=== PATIENT | male | born 1950 | race Caucasian/White ===

== ENCOUNTER 2020-08-26 08:36 | Emergency (ER) | payer BC ==
[2020-08-26 08:55] VITALS: BP 113/83; PULSE 103; TEMP 98.3; BMI 27.2
== END 2020-08-26 13:14 | disposition home or self-care (01) ==
LOC: JER 08:36
DX: M79.651 Pain in right thigh (principal); M79.652 Pain in left thigh; N50.811 Right testicular pain; N50.812 Left testicular pain
CPT/HCPCS: 76870-TC; 93970-TC; 99284-25

== ENCOUNTER 2020-12-07 12:12 | Observation (INO) | payer BC ==
[2020-12-07] MEDS ORDERED: ASPIRIN 81 MG CHEWABLE TABLETS PO ONE (13:17)
[2020-12-07] MEDS ORDERED: ASPIRIN 81 MG CHEWABLE TABLETS ONE (13:37)
[2020-12-07 13:42] LABS: BASO % 0.5 % (0-2.0); EOS % 0.6 % (0-4.5); HEMATOCRIT 40.2 % (35.4-49); HEMOGLOBIN 13.9 GM/dL (11.7-16.9); LYMPH % 23.4 % (8-40); MCH 31.5 pg (25.7-33.7); MCHC 34.5 g/dl (32.0-35.9); MEAN CELL VOLUME 91.4 fl (80-96); MEAN PLT VOLUME 8.3 fl (7.5-11.1); NEUT % 68.5 % (42.8-82.8); PLATELET COUNT 346 10^3/uL (134-434); RDW 13.5 % (11.9-15.9); WHITE BLOOD COUNT 9.4 K/mm3 (4.0-10.0)
[2020-12-07 14:00] LABS: CHLORIDE 113 mmol/L (98-107); SODIUM 141 mmol/L (136-145)
[2020-12-07 14:02] LABS: CALCIUM 9.3 mg/dL (8.5-10.1)
[2020-12-07 14:03] LABS: ALBUMIN 3.9 g/dl (3.4-5.0); ANION GAP 10 MMOL/L (8-16); CO2 19 mmol/L (21-32); GLUCOSE,RANDOM 102 mg/dL (74-106)
[2020-12-07 14:06] LABS: CREATININE 1.4 mg/dL (0.55-1.3); SGOT/AST 23 U/L (15-37); SGPT/ALT 32 U/L (13-61)
[2020-12-07 14:07] LABS: BILIRUBIN,TOTAL 0.5 mg/dL (0.2-1); TOT PROT 7.5 g/dl (6.4-8.2)
[2020-12-07 14:08] LABS: ALK PHOS 107 U/L (45-117)
[2020-12-07 14:35] LABS: BLOOD UREA NITROGEN 25.2 mg/dL (7-18)
[2020-12-07] MEDS ORDERED: ATORVASTATIN CA 80 MG TABLET (FP) PO SCH (22:00)
[2020-12-07] MEDS: HEPARIN NA (PORCINE) 5,000 UNITS/ML 1ML VIAL SQ SCH (22:58)
[2020-12-07] MEDS: ATORVASTATIN CA 40 MG TABLET (FP) PO SCH (23:54)
[2020-12-08 01:06] VITALS: BMI 27.3
[2020-12-08] MEDS: LOSARTAN POTASSIUM 50 MG TABLET PO SCH ×2 (08:08→11:58)
[2020-12-08 08:19] LABS: BASO % 0.5 % (0-2.0); EOS % 2.1 % (0-4.5); HEMOGLOBIN 13.4 GM/dL (11.7-16.9); LYMPH % 36.1 % (8-40); MCH 31.5 pg (25.7-33.7); MCHC 34.4 g/dl (32.0-35.9); MEAN CELL VOLUME 91.4 fl (80-96); MEAN PLT VOLUME 8.2 fl (7.5-11.1); NEUT % 52.3 % (42.8-82.8); PLATELET COUNT 317 10^3/uL (134-434); RBC 4.27 M/mm3 (4.00-5.60); RDW 13.9 % (11.9-15.9); WHITE BLOOD COUNT 7.2 K/mm3 (4.0-10.0)
[2020-12-08 08:31] LABS: CHLORIDE 110 mmol/L (98-107); SODIUM 142 mmol/L (136-145)
[2020-12-08 08:37] LABS: ALBUMIN 3.8 g/dl (3.4-5.0); ANION GAP 7 MMOL/L (8-16); CO2 25 mmol/L (21-32); GLUCOSE,RANDOM 75 mg/dL (74-106)
[2020-12-08 08:40] LABS: CHOLESTEROL 146 mg/dL (50-200); CREATININE 1.3 mg/dL (0.55-1.3); SGOT/AST 23 U/L (15-37); SGPT/ALT 31 U/L (13-61)
[2020-12-08 08:41] LABS: BILIRUBIN,TOTAL 0.8 mg/dL (0.2-1); LDL CHOLESTEROL (ONLY SJRH) 90 mg/dL (5-100)
[2020-12-08 08:42] LABS: ALK PHOS 108 U/L (45-117); TOT PROT 7.2 g/dl (6.4-8.2); TRIGLYCERIDES 90 mg/dL (0-150)
[2020-12-08 08:43] LABS: HDL CHOLESTEROL 45 mg/dL (40-60)
[2020-12-08] MEDS ORDERED: REGADENOSON 0.4 MG/5 ML PRE-FILLED SYRINGE IVPUSH ONE (10:37)
[2020-12-08] MEDS: ASPIRIN COATED 81 MG TABLET.EC PO SCH (12:46)
[2020-12-08] MEDS: PANTOPRAZOLE 40 MG TABLET PO SCH (12:50)
[2020-12-08] MEDS: HEPARIN NA (PORCINE) 5,000 UNITS/ML 1ML VIAL SQ SCH ×2 (12:50→21:02)
[2020-12-08] MEDS: amLODIPine BESYLATE 5 MG TABLET (FP) PO SCH ×2 (13:27→14:55)
[2020-12-08 17:15] LABS: URINE APPEARANCE CLEAR; URINE BILIRUBIN NEGATIVE (NEGATIVE); URINE COLOR YELLOW; URINE GLUCOSE (UA) NEGATIVE (NEGATIVE); URINE KETONE NEGATIVE (NEGATIVE); URINE LEUK ESTERASE NEGATIVE (NEGATIVE); URINE NITRITE NEGATIVE (NEGATIVE); URINE PROTEIN NEGATIVE (NEGATIVE); URINE UROBILINOGEN 0.2 mg/dL (0.2-1.0)
[2020-12-08] MEDS: ATORVASTATIN CA 40 MG TABLET (FP) PO SCH (21:00)
[2020-12-09 07:50] LABS: CALCIUM 8.9 mg/dL (8.5-10.1)
[2020-12-09 07:51] LABS: ALBUMIN 3.8 g/dl (3.4-5.0); BLOOD UREA NITROGEN 21.3 mg/dL (7-18)
[2020-12-09 07:54] LABS: CREATININE 1.4 mg/dL (0.55-1.3)
[2020-12-09 07:55] LABS: BILIRUBIN,TOTAL 0.7 mg/dL (0.2-1); TOT PROT 7.2 g/dl (6.4-8.2)
[2020-12-09] MEDS: amLODIPine BESYLATE 5 MG TABLET (FP) PO SCH (09:37)
[2020-12-09] MEDS: PANTOPRAZOLE 40 MG TABLET PO SCH (09:38)
[2020-12-09] MEDS: ASPIRIN COATED 81 MG TABLET.EC PO SCH (09:38)
[2020-12-09] MEDS: HEPARIN NA (PORCINE) 5,000 UNITS/ML 1ML VIAL SQ SCH (09:38)
[2020-12-09] MEDS: LOSARTAN POTASSIUM 50 MG TABLET PO SCH (09:38)
[2020-12-09 09:54] VITALS: BP 121/70; PULSE 56; TEMP 98
== END 2020-12-09 10:20 | disposition home or self-care (01) ==
LOC: JER 12:12 → JERBED 14:40 → UNDOADMOB 14:40 → INTOOBSV 17:50 → OBSVTOIN 17:50 → JERBED 22:05 → J4W 22:05 → JERBED 12-08 12:57 → J4W 12-08 12:57
PROVIDERS: ADMIT Family Medicine; ATTEND Family Medicine
DX: I25.10 Atherosclerotic heart disease of native coronary artery without angina pectoris (principal); E78.5 Hyperlipidemia, unspecified; I11.9 Hypertensive heart disease without heart failure; Z95.5 Presence of coronary angioplasty implant and graft; N17.9 Acute kidney failure, unspecified
CPT/HCPCS: 36415; 71046-TC-FY; 76775-TC; 78452-TC; 80053; 80061; 81003; 82550; 82553; 83036; 84443; 84484; 85025; 93005; 93010; 93017; 93306-TC; 99285-25; A9502; C9803; G0378; J2785; U0003; U0005

== ENCOUNTER 2021-01-10 12:46 | Inpatient (IN) | payer BC ==
[2021-01-10] MEDS ORDERED: SODIUM CHLORIDE 0.9% 500 ML INFUS.BAG IV ONE (13:55)
[2021-01-10] MEDS ORDERED: ONDANSETRON 4 MG/2 ML VIAL IVPUSH ONE ×2 (13:55→15:28)
[2021-01-10] MEDS ORDERED: morphine CARPU-JECT 4 MG/1 ML DISP.SYRIN IVPUSH ONE ×2 (13:56→15:28)
[2021-01-10] MEDS ORDERED: ONDANSETRON 4 MG/2 ML VIAL ONE ×3 (14:19→22:19)
[2021-01-10] MEDS ORDERED: morphine SULFATE 4 MG/ML VIAL ONE ×3 (14:19→22:19)
[2021-01-10 14:38] LABS: BASO % 0.2 % (0-2.0); EOS % 0.1 % (0-4.5); HEMATOCRIT 40.4 % (35.4-49); HEMOGLOBIN 14.2 GM/dL (11.7-16.9); LYMPH % 11.2 % (8-40); MCH 31.7 pg (25.7-33.7); MCHC 35.1 g/dl (32.0-35.9); MEAN CELL VOLUME 90.3 fl (80-96); MONO % 5.5 % (3.8-10.2); PLATELET COUNT 341 10^3/uL (134-434); RBC 4.47 M/mm3 (4.00-5.60); RDW 14.1 % (11.9-15.9); WHITE BLOOD COUNT 13.4 K/mm3 (4.0-10.0)
[2021-01-10 14:46] LABS: EPI CELLS 3 /uL (0-25.1); HYALINE CASTS 1 /uL (0-3.1); URINE APPEARANCE CLEAR; URINE BACTERIA 1 /uL (0-1359); URINE BILIRUBIN NEGATIVE (NEGATIVE); URINE COLOR DK YELLOW; URINE GLUCOSE (UA) NEGATIVE (NEGATIVE); URINE KETONE TRACE (NEGATIVE); URINE LEUK ESTERASE NEGATIVE (NEGATIVE); URINE NITRITE NEGATIVE (NEGATIVE); URINE PROTEIN TRACE (NEGATIVE); URINE RBC 12 /uL (0-23.9); URINE UROBILINOGEN 0.2 mg/dL (0.2-1.0); URINE WBC 3 /uL (0-25.8)
[2021-01-10 14:59] LABS: CALCIUM 9.1 mg/dL (8.5-10.1)
[2021-01-10 15:00] LABS: ALBUMIN 4.1 g/dl (3.4-5.0); BLOOD UREA NITROGEN 13.2 mg/dL (7-18)
[2021-01-10 15:04] LABS: BILIRUBIN,TOTAL 0.6 mg/dL (0.2-1); CREATININE 1.9 mg/dL (0.55-1.3); TOT PROT 7.6 g/dl (6.4-8.2)
[2021-01-10 15:12] LABS: YEAST NON SEEN (NEGATIVE)
[2021-01-10] MEDS ORDERED: ACETAMINOPHEN INJECTION 100 ML IVPB ONE (16:16)
[2021-01-10] MEDS ORDERED: HYDROmorphone HCL CARPU-JECT 2 MG/1 ML DISP.SYRIN IVPUSH ONE ×2 (16:20→20:23)
[2021-01-10] MEDS ORDERED: ACETAMINOPHEN 1000 MG/100 ML VIAL IVPB ONE (16:20)
[2021-01-10] MEDS ORDERED: HYDROmorphone HCl 2 MG/ML VIAL ONE ×2 (16:31→20:46)
[2021-01-10] MEDS ORDERED: CEFTRIAXONE 1 GM/50 ML BAG ONE (21:17)
[2021-01-10] MEDS ORDERED: ONDANSETRON 4 MG/2 ML VIAL IVPUSH PRN (21:18)
[2021-01-10] MEDS: morphine SULFATE 4 MG/ML VIAL IVPUSH PRN (22:31)
[2021-01-10] MEDS: SODIUM CHLORIDE 1,000 ML IV SCH (22:31)
[2021-01-11] MEDS: morphine SULFATE 4 MG/ML VIAL IVPUSH PRN ×4 (02:20→18:33)
[2021-01-11 02:53] VITALS: BMI 28.0
[2021-01-11] MEDS: ACETAMINOPHEN 1000 MG/100 ML VIAL IVPB PRN ×3 (04:44→20:52)
[2021-01-11 09:21] LABS: BASO % 0.5 % (0-2.0); EOS % 0.4 % (0-4.5); HEMATOCRIT 36.1 % (35.4-49); HEMOGLOBIN 12.8 GM/dL (11.7-16.9); LYMPH % 23.2 % (8-40); MCH 31.6 pg (25.7-33.7); MCHC 35.4 g/dl (32.0-35.9); MEAN CELL VOLUME 89.5 fl (80-96); MEAN PLT VOLUME 7.9 fl (7.5-11.1); MONO % 8.4 % (3.8-10.2); NEUT % 67.5 % (42.8-82.8); PLATELET COUNT 289 10^3/uL (134-434); RBC 4.03 M/mm3 (4.00-5.60); RDW 14.1 % (11.9-15.9); WHITE BLOOD COUNT 10.9 K/mm3 (4.0-10.0)
[2021-01-11] MEDS ORDERED: cefTRIAXone SODIUM 1 GM VIAL ONE (09:32)
[2021-01-11] MEDS ORDERED: DEXTROSE 5%-WATER - 50 ML IVPB ONE (09:32)
[2021-01-11] MEDS: SODIUM CHLORIDE 1,000 ML IV SCH (09:33)
[2021-01-11 09:40] LABS: CALCIUM 8.6 mg/dL (8.5-10.1)
[2021-01-11 09:41] LABS: BLOOD UREA NITROGEN 14.3 mg/dL (7-18)
[2021-01-11 09:44] LABS: ALBUMIN 3.1 g/dl (3.4-5.0); CREATININE 1.8 mg/dL (0.55-1.3)
[2021-01-11 09:45] LABS: BILIRUBIN,TOTAL 0.4 mg/dL (0.2-1); TOT PROT 6.1 g/dl (6.4-8.2)
[2021-01-11] MEDS: HEPARIN NA (PORCINE) 5,000 UNITS/ML 1ML VIAL SQ SCH ×2 (09:50→22:05)
[2021-01-11] MEDS ORDERED: CEFTRIAXONE 1 GM in DEXTROSE 5%-WATER - 50 ML IVPB SCH (10:00)
[2021-01-11] MEDS ORDERED: ASPIRIN COATED 81 MG TABLET.EC PO SCH (10:00)
[2021-01-11] MEDS ORDERED: ATORVASTATIN CA 40 MG TABLET (FP) PO SCH (10:00)
[2021-01-11] MEDS ORDERED: amLODIPine BESYLATE 5 MG TABLET (FP) PO SCH (10:00)
[2021-01-11] MEDS ORDERED: KETOROLAC TROMETHAMINE 60 MG/2 ML VIAL IM ONE (14:32)
[2021-01-12] MEDS: morphine SULFATE 4 MG/ML VIAL IVPUSH PRN ×2 (00:24→05:57)
[2021-01-12] MEDS: SODIUM CHLORIDE 1,000 ML IV SCH ×2 (02:11→09:35)
[2021-01-12] MEDS ORDERED: SUCCINYLCHOLINE CHLORIDE 200 MG/10 ML SYRINGE ONE (07:20)
[2021-01-12] MEDS ORDERED: PROPOFOL 20 ML ONE ×2 (07:20)
[2021-01-12] MEDS ORDERED: ROCURONIUM BROMIDE 50 MG/5 ML SYRINGE ONE (07:20)
[2021-01-12] MEDS ORDERED: MIDAZOLAM HCL 2 MG/2 ML SINGLE DOSE VIAL ONE (07:20)
[2021-01-12] MEDS ORDERED: ceFAZolin SODIUM 1 GM VIAL IVPB ONE (07:45)
[2021-01-12] MEDS ORDERED: GENTAMICIN SO4 80 MG/2 ML VIAL IVPB ONE (07:45)
[2021-01-12] MEDS ORDERED: morphine SULFATE 4 MG/ML VIAL IVPUSH PRN (08:20)
[2021-01-12] MEDS ORDERED: ONDANSETRON 4 MG/2 ML VIAL IVPUSH PRN (08:36)
[2021-01-12] MEDS ORDERED: DEXTROSE 5%-WATER - 50 ML IVPB ONE (09:47)
[2021-01-12] MEDS ORDERED: cefTRIAXone SODIUM 1 GM VIAL ONE (09:47)
[2021-01-12] MEDS: amLODIPine BESYLATE 5 MG TABLET (FP) PO SCH (09:51)
[2021-01-12] MEDS: ASPIRIN COATED 81 MG TABLET.EC PO SCH (09:51)
[2021-01-12] MEDS: CEFTRIAXONE 1 GM in DEXTROSE 5%-WATER - 50 ML IVPB SCH (09:53)
[2021-01-12] MEDS: HEPARIN NA (PORCINE) 5,000 UNITS/ML 1ML VIAL SQ SCH ×3 (09:56→22:13)
[2021-01-12] MEDS ORDERED: oxyCODONE HCL 5 MG TABLET PO PRN (10:32)
[2021-01-12] MEDS: LACTATED RINGERS SOLUTION 1,000 ML IV SCH ×2 (10:57→18:45)
[2021-01-12] MEDS ORDERED: LORazepam 1 MG TABLET PO PRN (11:05)
[2021-01-12] MEDS: TAMSULOSIN HCL 0.4 MG CAP PO SCH (18:44)
[2021-01-12 19:44] LABS: BASO % 0.4 % (0-2.0); HEMATOCRIT 36.9 % (35.4-49); HEMOGLOBIN 12.5 GM/dL (11.7-16.9); MCH 31.3 pg (25.7-33.7); MEAN CELL VOLUME 92.1 fl (80-96); MEAN PLT VOLUME 7.8 fl (7.5-11.1); MONO % 9.1 % (3.8-10.2); NEUT % 73.5 % (42.8-82.8); PLATELET COUNT 274 10^3/uL (134-434); WHITE BLOOD COUNT 11.5 K/mm3 (4.0-10.0)
[2021-01-12 20:32] LABS: CALCIUM 8.5 mg/dL (8.5-10.1)
[2021-01-12 20:33] LABS: BLOOD UREA NITROGEN 17.7 mg/dL (7-18)
[2021-01-12 20:36] LABS: CREATININE 1.7 mg/dL (0.55-1.3)
[2021-01-12] MEDS: ATORVASTATIN CA 40 MG TABLET (FP) PO SCH (22:09)
[2021-01-13] MEDS: LACTATED RINGERS SOLUTION 1,000 ML IV SCH ×3 (06:07→12:30)
[2021-01-13] MEDS: TAMSULOSIN HCL 0.4 MG CAP PO SCH (08:00)
[2021-01-13 09:36] LABS: BLOOD UREA NITROGEN 12.4 mg/dL (7-18)
[2021-01-13 09:38] LABS: ALBUMIN 3.1 g/dl (3.4-5.0); CALCIUM 8.8 mg/dL (8.5-10.1)
[2021-01-13 09:40] LABS: CREATININE 1.3 mg/dL (0.55-1.3)
[2021-01-13 09:41] LABS: BILIRUBIN,TOTAL 0.5 mg/dL (0.2-1)
[2021-01-13 09:42] LABS: TOT PROT 6.4 g/dl (6.4-8.2)
[2021-01-13] MEDS ORDERED: DEXTROSE 5%-WATER - 50 ML IVPB ONE (09:49)
[2021-01-13] MEDS ORDERED: cefTRIAXone SODIUM 1 GM VIAL ONE (09:49)
[2021-01-13] MEDS: CEFTRIAXONE 1 GM in DEXTROSE 5%-WATER - 50 ML IVPB SCH (09:52)
[2021-01-13] MEDS: ASPIRIN COATED 81 MG TABLET.EC PO SCH (09:53)
[2021-01-13] MEDS: amLODIPine BESYLATE 5 MG TABLET (FP) PO SCH (09:53)
[2021-01-13] MEDS: HEPARIN NA (PORCINE) 5,000 UNITS/ML 1ML VIAL SQ SCH ×2 (09:56→21:34)
[2021-01-13] MEDS: SODIUM CHLORIDE 1,000 ML IV SCH (09:57)
[2021-01-13] MEDS: LOSARTAN POTASSIUM 50 MG TABLET PO SCH (13:11)
[2021-01-13] MEDS: ATORVASTATIN CA 40 MG TABLET (FP) PO SCH (21:33)
[2021-01-14] MEDS: LACTATED RINGERS SOLUTION 1,000 ML IV SCH (05:12)
[2021-01-14] MEDS ORDERED: cefTRIAXone SODIUM 1 GM VIAL ONE (09:24)
[2021-01-14] MEDS ORDERED: DEXTROSE 5%-WATER - 50 ML IVPB ONE (09:25)
[2021-01-14] MEDS: ASPIRIN COATED 81 MG TABLET.EC PO SCH (09:26)
[2021-01-14] MEDS: CEFTRIAXONE 1 GM in DEXTROSE 5%-WATER - 50 ML IVPB SCH (09:26)
[2021-01-14] MEDS: LOSARTAN POTASSIUM 50 MG TABLET PO SCH (09:26)
[2021-01-14] MEDS: HEPARIN NA (PORCINE) 5,000 UNITS/ML 1ML VIAL SQ SCH ×2 (09:26→09:45)
[2021-01-14] MEDS: amLODIPine BESYLATE 5 MG TABLET (FP) PO SCH (09:26)
[2021-01-14] MEDS: TAMSULOSIN HCL 0.4 MG CAP PO SCH (09:26)
[2021-01-14 10:10] LABS: CALCIUM 8.5 mg/dL (8.5-10.1)
[2021-01-14 10:11] LABS: BLOOD UREA NITROGEN 11.4 mg/dL (7-18)
[2021-01-14 10:14] LABS: CREATININE 1.2 mg/dL (0.55-1.3)
[2021-01-14 14:11] VITALS: BP 131/67; PULSE 74; TEMP 97.8
[2021-01-20 08:44] LABS: SIZE 6 x 4 mm
[2021-01-20 08:45] LABS: CA OXALATE MONOHYDR. 100%; WEIGHT 87 mg
== END 2021-01-14 16:31 | disposition home or self-care (01) | DRG 660 ==
LOC: JER 12:46 → JERBED 21:48 → J6S 01-11 01:56
PROVIDERS: ADMIT Internal Medicine; ATTEND Family Medicine
PROC: 0T768DZ Dilation of Right Ureter with Intraluminal Device, Via Natural or Artificial Opening Endoscopic (ICD-10-PCS; principal; 2021-01-12 07:30)
PROC: 0TC68ZZ Extirpation of Matter from Right Ureter, Via Natural or Artificial Opening Endoscopic (ICD-10-PCS; 2021-01-12 07:30)
PROC: BT1DZZZ Fluoroscopy of Right Kidney, Ureter and Bladder (ICD-10-PCS; 2021-01-12 07:30)
DX: N17.9 Acute kidney failure, unspecified (principal); N39.0 Urinary tract infection, site not specified; N13.2 Hydronephrosis with renal and ureteral calculous obstruction; N18.9 Chronic kidney disease, unspecified; R31.9 Hematuria, unspecified; I10 Essential (primary) hypertension; E78.5 Hyperlipidemia, unspecified; I25.10 Atherosclerotic heart disease of native coronary artery without angina pectoris; Z98.61 Coronary angioplasty status; D72.829 Elevated white blood cell count, unspecified
CPT/HCPCS: 36415; 71046-TC-FY; 74176-TC; 76700-TC; 80048; 80053; 81003; 82360; 82977; 85025; 86704; 86708; 86803; 87040; 87086; 87340; 87517; 93005; 93010; 94760; 99285-25; C9803; J0131; J1644; U0003; U0005

== ENCOUNTER 2021-12-06 04:12 | Day surgery (SDC) | payer BC ==
[2021-12-03 11:45] VITALS: BMI 28.0
[2021-12-06] MEDS ORDERED: amLODIPine BESYLATE 5 MG TABLET (FP) PO ONE (10:18)
[2021-12-06] MEDS ORDERED: ACETAMINOPHEN 325 MG TABLET (FP) PO PRN (10:21)
[2021-12-06] MEDS ORDERED: PROPOFOL 20 ML ONE (10:47)
[2021-12-06] MEDS ORDERED: KETOROLAC TROMETHAMINE 30 MG/1 ML VIAL ONE (10:47)
[2021-12-06] MEDS ORDERED: ONDANSETRON 4 MG/2 ML VIAL ONE (10:47)
[2021-12-06] MEDS ORDERED: ONDANSETRON 4 MG/2 ML VIAL IVPUSH PRN (13:46)
[2021-12-06] MEDS ORDERED: LACTATED RINGERS SOLUTION 1,000 ML IV SCH (14:00)
[2021-12-06 14:03] VITALS: RESP 18
[2021-12-06] MEDS ORDERED: ATORVASTATIN CA 40 MG TABLET (FP) PO SCH (22:00)
[2021-12-07 04:26] VITALS: BP 142/77; PULSE 54; TEMP 97.5
== END 2021-12-07 12:00 | disposition home or self-care (01) ==
LOC: JASUSAT 04:12 → JASU-SURG 04:12 → J6S 12:37 → JASUSAT 12-07 12:00
PROVIDERS: ATTEND Urology
PROC: 0TF3XZZ Fragmentation in Right Kidney Pelvis, External Approach (ICD-10-PCS; principal; 2021-12-06 08:30)
DX: N20.0 Calculus of kidney (principal)
CPT/HCPCS: 82962; 94760